=== PATIENT | male | born 1975 | race Caucasian/White ===

== ENCOUNTER 2016-07-02 14:04 | Emergency (ER) | payer SELFPAY ==
[~2016-07-02] VITALS: Ht 182.9 cm; Wt 93.3 kg
[~2016-07-02 14:04] MED LIST: CARDIZEM CD,CA180 MG PO; ELIQUIS5 MG PO; NICOTINE PATCH1 EAC2 TD; PRAVASTATIN SOD40 MG PO; VENTOLIN HFA18 GM IH; ZITHROMAX Z-PA250 MG PO
[2016-07-02 14:43] LABS: HEMATOCRIT 45.4 % (38.0-50.0); MCH 29.7 PG (29.0-34.0); MCHC 33.3 G/DL (30.0-36.0); MCV 89.4 FL (86-99); MEAN PLAT.VOLUME 9.9 uM^3 (9.0-12.4); PLATELET COUNT 187 K/uL (156-360); RBC DIS.WIDTH-CV 12.2 % (11.8-14.6); RBC DIS.WIDTH-SD 40.2 % (39-53); RED BLOOD COUNT 5.08 M/uL (4.00-5.50); WHITE BLOOD COUNT 3.6 K/uL (4.1-10.2)
[2016-07-02 14:51] LABS: CHLORIDE 107 mEq/L (99-109); POTASSIUM 4.1 mEq/L (3.7-5.4); SODIUM 140 mEq/L (136-147)
[2016-07-02 14:53] LABS: GLUCOSE 102 mg/dL (70-99)
[2016-07-02 14:55] LABS: ANION GAP 14 MEQ/L (2-14)
[2016-07-02 14:57] LABS: GFR ESTIMATE (CALCULATED) > 59 mL/min/
[2016-07-02 14:58] LABS: UREA NITROGEN (BUN) 13 mg/dL (9-23)
[2016-07-02 15:00] VITALS: BP 111/69
[2016-07-02 15:04] LABS: TROP-I INTERPRETATION NEGATIVE; TROPONIN-I < 0.01 ng/mL (0.0-0.30)
== END 2016-07-02 17:04 | disposition home or self-care (01) ==
LOC: EME 14:04
PROVIDERS: Emergency Medicine
DX: B34.9 Viral infection, unspecified (principal); R07.89 Other chest pain; F17.200 Nicotine dependence, unspecified, uncomplicated
CPT/HCPCS: 71020; 80048; 84484; 85027; 93005; 99281; 99284; J1885